=== PATIENT | female | born 1960 | race Caucasian/White ===

== ENCOUNTER 2021-04-15 06:43 | Day surgery (SDC) | payer OTHER ==
[2021-04-12 09:21] LABS: Albumin 3.6 g/dL (3.4-5.0); Bilirubin Total 0.3 mg/dL (0.2-1.0)
[2021-04-15] MEDS: Ringers Lactate 1,000 ML IV ONE ×2 (07:18→08:17)
[2021-04-15] MEDS ORDERED: LIDOCAINE 1% MPF 5 ML VIAL ONE (07:32)
[2021-04-15] MEDS ORDERED: propofoL 200 MG/20 ML VIAL IV ONE ×2 (07:32→08:41)
--- NOTE | 2021-04-15 08:47 | ENDO RPT ---
[address], [address] EGD PROCEDURE REPORT EXAM DATE: 04/15/2021 PATIENT NAME: Janet Kim MR#: [id number] BIRTHDATE: 1960 ATTENDING: [place] [address] STATUS: outpatient DIRECT SUPPORT WORKER: Teresa Paredes and Agnieszka Roberts RN INDICATIONS: The patient is a 60 yr old Female here for an EGD due to dyspepsia PROCEDURE PERFORMED: EGD with biopsy for H. pylori MEDICATIONS: Per Anesthesia. TOPICAL ANESTHETIC: none CONSENT: The patient understands the risks and benefits of the procedure and understands that these risks include, but are not limited to: sedation, allergic reaction, infection, perforation and/or bleeding. Alternative means of evaluation and treatment include, among others: physical exam, x-rays, and/or surgical intervention. The patient elects to proceed with this endoscopic procedure. DESCRIPTION OF PROCEDURE: During intra-op preparation period all mechanical medical equipment was checked for proper function. Hand hygiene and appropriate measures for infection prevention was taken. Procedure, possible complications, and alternatives including but not limited to the possibility of bleeding, perforation, tear, infection, sepsis, need for surgery, need for blood transfusion, and anesthesia related complications were explained to the patient. After the risks, benefits and alternatives of the procedure were thoroughly explained, Informed consent was verified, confirmed and timeout was successfully executed by the treatment team. The patient was placed in the left lateral position. The patient was anesthetized with topical anesthesia. Through the anesthetized oropharyngeal area, the scope was passed without any difficulty. The EC-3890Li ([id number]) and [id number] ([id number]) endoscope was introduced through the mouth and advanced to the second portion of the duodenum. Gastric Band Noted. The gastroscope was then slowly withdrawn and removed. Duodenitis was found in the bulb of the duodenum. A biopsy for H. pylori was taken. Mild gastritis was found at the pylorus. A biopsy for H. pylori was taken. Gastric Band Noted in proximal stomach The esophagus and gastroesophageal junction were completely normal in appearance. ADVERSE EVENTS: There were no complications. IMPRESSIONS: 1. Duodenitis was found in the bulb of the duodenum 2. Mild gastritis was found at the pylorus 3. Gastric Band Noted in proximal stomach 4. Normal esophagus RECOMMENDATIONS: 1. acid suppression therapy 2. anti-reflux regimen 3. await biopsy results 4. avoid NSAIDS 5. follow-up: office 2 week(s) 6. follow-up of helicobacter pylori status, treat if indicated REPEAT EXAM: [place] DR eSigned: [place] DR 04/15/2021 8:47 AM cc: CPT CODES: ICD9 CODES: PATIENT NAME: Janet Kim MR#: [id number]
--- NOTE | 2021-04-15 09:19 | ENDO RPT ---
[address], [address] COLONOSCOPY PROCEDURE REPORT EXAM DATE: 04/15/2021 PATIENT NAME: Janet Kim MR #: [id number] BIRTHDATE: 1960 ATTENDING: [place] DR STATUS: outpatient [employer] OFFICER: Teresa Paredes and Agnieszka Roberts RN INDICATIONS: The patient is a 60 yr old Female here for a colonoscopy due to colon cancer screening PROCEDURE PERFORMED: Colonoscopy with biopsy - cold polypectomy MEDICATIONS: Per Anesthesia. ESTIMATED BLOOD LOSS: None CONSENT: The patient understands the risks and benefits of the procedure and understands that these risks include, but are not limited to: sedation, allergic reaction, infection, perforation and/or bleeding. Alternative means of evaluation and treatment include, among others: physical exam, x-rays, and/or surgical intervention. The patient elects to proceed with this endoscopic procedure. DESCRIPTION OF PROCEDURE: During intra-op preparation period all mechanical medical equipment was checked for proper function. Hand hygiene and appropriate measures for infection prevention was taken. Procedure, possible complications, alternatives including, but not limited to possibility of bleeding, perforation, tear, infection, sepsis, need for surgery, need for blood transfusion, were explained to the patient. After the risks, benefits and alternatives of the procedure were thoroughly explained, Informed consent was verified, confirmed and timeout was successfully executed by the treatment team. The patient was placed in the left lateral position. A digital rectal exam was performed and revealed internal hemorrhoids and A digital rectal exam was performed and revealed external hemorrhoids. After appropriate level of anesthesia, the scope was passed. The EC-[id number] ([id number]) endoscope was introduced through the anus and advanced to the ileocecal valve. The quality of the prep was fair. The instrument was then slowly withdrawn as the colon was fully examined. Scope withdrawal time was 12 minutes. COLON FINDINGS: A medium sized polypoid shaped and fungating sessile polyps, measuring 5 mm in size, were found in the transverse colon. An Additional polyp which was fungating 1.5cm found in the right colon was noted and removed with saline lift, as well as hot snare, then the area was tattooed after complete removal and retrieval of fungating polyp, A polypectomy was performed using snare cautery on the 5mm Transverse colon polyp as well. The resection was complete, the polyp tissue was completely retrieved and sent to histology. Retroflexed views revealed no abnormalities. The scope was then completely withdrawn from the patient and the procedure terminated. ADVERSE EVENTS: There were no complications. IMPRESSIONS: Few medium sized sessile polyps were found in the right colon and transverse colon; polypectomy was performed in a piecemeal fashion using snare cautery WITH SALINE LIFT TATOO was performed on the RIGHT colon polyp RECOMMENDATIONS: 1. avoid NSAIDS for 2 weeks 2. await biopsy results 3. fiber rich diet 4. follow-up: office 2 week(s) 5. Monitor for any evidence of rectal bleeding. 6. increase dietary water RECALL: Return in 1 year(s) for Colonoscopy, pending biopsy results. Follow up in 2 weeks to review pathology [place] DR eSigned: [place] DR 04/15/2021 9:19 AM cc: CPT CODES: ICD9 CODES: PATIENT NAME: Janet Kim MR#: [id number]
[2021-04-15 11:22] VITALS: TEMP 97.3; O2SAT 100
[2021-04-15 11:23] VITALS: BP 135/58
== END 2021-04-15 09:15 | disposition home or self-care (01) ==
LOC: OR 06:43
PROVIDERS: ATTEND Surgery
PROC: 0DB98ZX Excision of Duodenum, Via Natural or Artificial Opening Endoscopic, Diagnostic (ICD-10-PCS; 2021-04-15)
PROC: 0DB68ZX Excision of Stomach, Via Natural or Artificial Opening Endoscopic, Diagnostic (ICD-10-PCS; 2021-04-15)
PROC: 0DBF8ZX Excision of Right Large Intestine, Via Natural or Artificial Opening Endoscopic, Diagnostic (ICD-10-PCS; principal; 2021-04-15 08:00)
PROC: 0DBL8ZX Excision of Transverse Colon, Via Natural or Artificial Opening Endoscopic, Diagnostic (ICD-10-PCS; 2021-04-15 08:00)
DX: K29.50 Unspecified chronic gastritis without bleeding (principal); R19.7 Diarrhea, unspecified; R11.0 Nausea; R14.0 Abdominal distension (gaseous); K21.9 Gastro-esophageal reflux disease without esophagitis; D12.2 Benign neoplasm of ascending colon
CPT/HCPCS: 36415; 88312; 88305; 80053; 45380; 43239; J2704 ×2; J7120